=== PATIENT | female | born 1970 | race Caucasian/White ===

== ENCOUNTER → 2017-04-26 | Outpatient (CLI) | payer MEDICAID | LOC: CIMAGING 11:16 | PROVIDERS: ATTEND Obstetrics & Gynecology | DX: Z12.31 Encounter for screening mammogram for malignant neoplasm of breast (principal) | CPT/HCPCS: G0202 ==

== ENCOUNTER → 2017-05-12 | Outpatient (CLI) | payer MEDICAID | LOC: CIMAGING 13:16 | PROVIDERS: ATTEND Obstetrics & Gynecology | DX: N60.02 Solitary cyst of left breast (principal) | CPT/HCPCS: 76641-PO; G0206 ==

== ENCOUNTER → 2017-06-08 | Outpatient (CLI) | payer MEDICAID ==
[~2017-06-08] MED LIST: BUPIVACAINE 0.5% 10 ML SDV ONE; LIDOCAINE 1% 300 MG/30 ML SDV ONE
== END ==
LOC: FIMAGING 07:07
PROVIDERS: ATTEND Obstetrics & Gynecology
PROC: 0HBU3ZX Excision of Left Breast, Percutaneous Approach, Diagnostic (ICD-10-PCS; principal; 2017-06-08)
PROC: BH01ZZZ Plain Radiography of Left Breast (ICD-10-PCS; principal; 2017-06-08)
DX: D24.2 Benign neoplasm of left breast (principal); N60.12 Diffuse cystic mastopathy of left breast; N60.22 Fibroadenosis of left breast; N60.82 Other benign mammary dysplasias of left breast
CPT/HCPCS: G0206

== ENCOUNTER → 2018-03-17 | Outpatient (CLI) | payer MEDICAID | LOC: CLAB 11:27 | PROVIDERS: ATTEND Clinical Nurse Specialist | DX: M51.36 Other intervertebral disc degeneration, lumbar region (principal); S33.140A Subluxation of L4/L5 lumbar vertebra, initial encounter | CPT/HCPCS: 72114-PO ==